=== PATIENT | male | born 1950 | race Caucasian/White ===

== ENCOUNTER 2019-08-15 14:00 | Emergency (ER) | payer OTHER ==
--- NOTE | 2019-08-15 14:33 | PDOC ---
History of Present Illness <Ej Osborne - Last Filed: 08/15/19 17:56> - General History Source: Patient Exam Limitations: No Limitations - History of Present Illness Initial Comments: 69 year old male with no PMH presented to ED for left ankle pain s/p fall from ladder today. Pt reported he was on a 16 foot ladder at the top, lost his footing and fell down around 8 steps, constantly maintaining contact with the ladder, then the ladder suddenly fell forward, causing him to fall forward to the ground with the ladder. Pt reported he believes he hit is foot on the way down, and that is why it hurts. Pt was not ambulatory after the incident, but denied LOC/vomiting, head injury, hand injury. Pt denied prodromal symptoms. Pt denied current back pain, neck pain, chest pain, headache, abdominal pain, upper extremity pain, hip pain. ROS General: denied fever, chills, generalized weakness. HEENT: denied sore throat, rhinorrhea, ear pain. Cardiovascular: denied chest pain, palpitations, syncope, diaphoresis. Respiratory: denied shortness of breath, cough, sputum production, hemoptysis. Gastrointestinal: denied abdominal pain, nausea, vomiting, diarrhea, constipation, blood in stool. Genitourinary: denied dysuria, increased urinary frequency, hematuria, urinary incontinence, flank pain. Back: denied back pain. Musculoskeletal: admitted to ankle pain, ankle swelling. Neurological: denied headache, dizziness, numbness, tingling, weakness. Integumentary: denied rash, laceration, abrasion. Hematologic/Lymphatic: denied bruising or bleeding. PE Constitutional: Well-nourished, Well-developed, appearing stated age. Airway: intact Breathing: bilateral breath sounds Circulation: 2+ carotid pulse B/L HEENT: head is normocephalic, atraumatic. No facial bones tenderness to palpation. No rodriguez sign. No raccoon eyes. EOMI. PERRLA. Neck: supple. Full ROM. no midline c-spine tenderness to palpation. No step offs. Cardiovascular: regular heart rhythm. no murmurs. no pericardial friction rub. Chest wall: No tenderness to palpation of anterior chest wall. No deformity to anterior chest wall. Respiratory: clear to auscultation bilaterally. no crackles, rhonchi or wheezing. no stridor. Gastrointestinal: soft, nontender. normal bowel sounds. no rebound, guarding, masses. No ecchymoses. Back: no midline T-spine or L-spine tenderness to palpation. No step offs. Pelvis: lower extremities equal in length without external rotation. No hip tenderness to palpation. Left lower extremity: swollen left ankle. tenderness to palpation of left lateral malleolus. no tenderness to palpation of medial malleolus, base of 5th MT, navicular area. no tenderness to palpation of left knee, left tib/fib area. 2+ DSP. Extremities: peripheral pulses intact. Neurological: CN 2-12 grossly intact. moves all four extremities. Psych: awake, alert, oriented x3. follows commands. answers questions appropriately. <Ana María Coyne - Last Filed: 08/16/19 06:44> - General Chief Complaint: Injury Stated Complaint: ANKLE INJURY Time Seen by Provider: 08/15/19 14:33 Past History <Ej Osborne - Last Filed: 08/15/19 17:56> <Ana María Coyne - Last Filed: 08/16/19 06:44> - Past Medical History Allergies/Adverse Reactions: Allergies Allergy/AdvReac Type Severity Reaction Status Date / Time diphenhydramine Allergy Severe Swelling Verified 08/15/19 14:33 [From [facility]ul] Home Medications: Ambulatory Orders Oxycodone HCl 5 mg PO QID PRN #10 tablet MDD 4 08/15/19 *Physical Exam - Vital Signs Last Vital Signs Temp Pulse Resp BP Pulse Ox 98.0 F 68 18 148/68 98 08/15/19 14:32 08/15/19 14:32 08/15/19 14:32 08/15/19 14:32 08/15/19 14:32 <Ej Osborne - Last Filed: 08/15/19 17:56> ED Treatment Course - Medications Given in the ED: ED Medications Discontinued Medications Generic Name Dose Route Start Last Admin Trade Name Freq PRN Reason Stop Dose Admin Acetaminophen 650 mg 08/15/19 14:48 08/15/19 15:20 Tylenol - PO 08/15/19 14:49 650 mg ONCE ONE Administration <Ej Osborne - Last Filed: 08/15/19 17:56> Medical Decision Making - Medical Decision Making 69 year old male presented to ED for left ankle pain/swelling s/p fall from 8 feet. Initial Vital Signs Temp Pulse Resp BP Pulse Ox 98.0 F 68 18 148/68 98 08/15/19 14:32 08/15/19 14:32 08/15/19 14:32 08/15/19 14:32 08/15/19 14:32 Afebrile. No tachycardia. No tachypnea. Mild hypertension. No hypoxia on room air. Labs ordered: none Imaging ordered: pelvis XR, left ankle/foot XR, left tib/fib XR Medications ordered: tylenol 650 mg PO once 08/15/19 15:57 XR concerning for calcaneal fracture. Dr. Hong/Jennifer group paged. 08/15/19 16:[address] Hong, who requested CT ankle/foot. Above ordered. 08/15/19 18:07 CT report: Name: [facility] DEPARTMENT OF RADIOLOGY Phys: Ana María Coyne RESIDENT : 1950 Age: 69 Sex: M [facility] Acct: [id number] Loc: [address] Exam Date: 08/15/19 Status: [place] [id number] Unit Number: [id number] EXAM #: TYPE/EXAM: RESULT: [id number] CT/LOWER EXTREMITY CT W/O CONTR Lower extremity/ left calcaneal CT without contrast Clinical information: calcaneal fracture Multiplanar imaging was performed. An acute comminuted displaced fracture is identified involving calcaneal body also extending ventrally to the talocuboid joint. There is equivocal subtle nondisplaced acute fracture within the distal fibular epiphyseal/ metaphysis ventrally. impression: As noted above. Reported By: Vicente Bill MD 08/15/[address] Rodriguez placed pt in posterior leg splint. Pt to be discharged with Ortho Ankle/Foot Trauma Surgery referral. Pt to be non-weight bearing. Pt not to take NSAIDs. Pt discharged. <Ana María Coyne - Last Filed: 08/16/19 06:44> Discharge - Discharge Information Problems reviewed: Yes - Admission No <Ej Osborne - Last Filed: 08/15/19 17:56> - Discharge Information Problems reviewed: Yes - Admission No <Ana María Coyne - Last Filed: 08/16/19 06:44> - Discharge Information Clinical Impression/Diagnosis: Calcaneal fracture Qualifiers: Encounter type: initial encounter Calcaneus location: body Fracture type: closed Fracture alignment: displaced Laterality: left Qualified Code(s): S92.012A - Displaced fracture of body of left calcaneus, initial encounter for closed fracture Condition: Good Disposition: HOME - Additional Discharge Information Prescriptions: Oxycodone HCl 5 mg PO QID PRN #10 tablet MDD 4 PRN Reason: Pain - Follow up/Referral Referrals: Wilber Smalls MD [Non Staff, Medical] - Hadley Rodriguez DO [Staff Physician] - - Patient Discharge Instructions Patient Printed Discharge Instructions: DI for Calcaneus Fracture Additional Instructions: Return to the emergency department immediately with ANY new, persistent or worsening symptoms. Take tylenol 975mg as needed for your pain up to 4 times a day. If that does not help your pain, you can take the oxycodone. Do not drive when taking oxycodone. Use the crutches to get around. Do not bear weight on your left foot. You MUST call and follow up with a trauma orthopedist within 3-4 days for further evaluation of your symptoms. Results were discussed with you. Please make sure your doctor reviews the results of your emergency evaluation. Your Emergency Department visit is not complete without a follow up with your doctor. Print Language: FRENCH
[2019-08-15 14:43] VITALS: BP 148/68; PULSE 68; TEMP 98; BMI 33.2
--- NOTE | 2019-08-15 14:46 | PDOC ---
Attending Attestation - Resident Resident Name: Ana María Coyne - ED Attending Attestation I have performed the following: I have examined & evaluated the patient, The case was reviewed & discussed with the resident, I agree w/resident's findings & plan, Exceptions are as noted - HPI HPI: 08/15/19 14:46 69y M no known pmhx presents with complaint of L ankle pain. The patient was Near the top of the 16 foot ladder that lost its footing and began to slide backward on the floor with one side against the wall, If fell slowly and then hung up on the woodwork above the doorway (approx 9 ft), And then fell the rest of the way, the patient put his left foot down With his hands and right foot still on the latter. The patient complains of pain to his left ankle denies any other injuries, headache, neck pain, dizziness, vision changes, head trauma , Back pain, upper extremity pain, right lower extremity pain. Patient denies any numbness or tingling The patient Declines any pain medication including Tylenol and aspirin Physicla GENERAL: The patient is awake, alert, and fully oriented, Nontoxic - in no acute distress. HEAD: Normocephalic, atraumatic. ABDOMEN: Soft, nontender, No guarding, no rebound. No CVA tenderness EXTREMITIES: Normal range of motion On upper extremity joints as well as lower extremity joints except for the left ankle, NEUROLOGICAL: No facial assymetry, Normal speech, back: No midline tenderness to the cervical, thoracic or lumbar spine Musculoskelatal: FROM of b/l shoulders, elbows, wrist. FROM of hips, knees, left ankles - No signs of ecchymosis, erythema, or crepitus noted on palpation extremities, chest wall, clavicals, ribs, back/lower extremity except for the L ankle Tenderness to palpation on the lateral malleolus as well as Near the deltoid ligaments. Suspect strain versus fracture will obtain an x-ray the patient declines any pain medicine - Physicial Exam PE: 08/15/19 16:02 see above - Medical Decision Making 08/15/19 16:02 The patient's x-ray is suggestive of a calcaneal fracture Anticipate placing into a splint and follow-up with Ortho Will discuss with Ortho for the recommendations 08/15/19 17:56 ortho bedside - splinted recommend trauma/ortho outpt consult for evaluation and possible surgical repair
[2019-08-15] MEDS ORDERED: ACETAMINOPHEN 325 MG TABLET (FP) PO ONE (14:48)
[2019-08-15] MEDS ORDERED: ACETAMINOPHEN 325 MG TABLET (FP) ONE (15:25)
--- NOTE | 2019-08-15 18:02 | CONSULT ---
Consult - text type - Consultation Consultation Note: ORTHOPEDIC SURGERY CONSULTATION NOTE Department of Orthopedic Surgery HISTORY OF PRESENT ILLNESS Mr. Méndez is a 69 year old male who presents to [facility] with a left calcaneus fracture. The orthopedic service was consulted for a left calcaneus fracture. The injury occurred after a fall from a ladder while painting today. The patient notes moderate pain in his ankle and heel which worsens with movement, and lessens with rest. Denies any other injuries. Denies numbness, tingling or other constitutional complaints. The patient works as a hand painter. Denies tobacco use, drug use, alcohol abuse. The patient lives with family and uses no assistive devices at baseline. FAMILY HISTORY non-contributory REVIEW OF SYMPTOMS A twelve-point review of systems was performed and was negative except as noted in HPI. PHYSICAL EXAM Constitutional: Alert and oriented to person, place, and time. Appears well- developed and well-nourished. No acute distress, appropriate mood and affect. Right Upper Extremity: Skin warm, dry, and intact; no lesions, rashes or ulcers noted. Muscle mass equal and symmetric to contralateral side. No atrophy noted. No masses or effusions noted. No tenderness to palpation all joints; nontender throughout rest of extremity. Full passive and active ROM, free from pain. Joints stable with no pathologic laxity. M/R/U/MSK/AX motor intact; SILT distally; 2+ radial pulses; Cap refill brisk. Tone and reflexes normal. Left Upper Extremity: Skin warm, dry, and intact; no lesions, rashes or ulcers noted. Muscle mass equal and symmetric to contralateral side. No atrophy noted. No masses or effusions noted. No tenderness to palpation all joints; nontender throughout rest of extremity. Full passive and active ROM, free from pain. Joints stable with no pathologic laxity. M/R/U/MSK/AX motor intact; SILT distally; 2+ radial pulses; Cap refill brisk. Tone and reflexes normal. Right Lower Extremity: Skin warm, dry, and intact; no lesions, rashes or ulcers noted. Muscle mass equal and symmetric to contralateral side. No atrophy noted. No masses or effusions noted. No tenderness to palpation all joints; nontender throughout rest of extremity. No cords or calf tenderness No significant calf/ankle edema. Full passive and active ROM, free from pain. Joints stable with no pathologic laxity. EHL/TA/GS motor intact; SILT distally; 2+ DP pulses; Cap refill brisk. Tone and reflexes normal. Left Lower Extremity: Skin warm, dry, and intact; no lesions, rashes or ulcers noted. Muscle mass equal and symmetric to contralateral side. No atrophy noted. No masses or effusions noted. There is mild swelling at the patient's heel, and posterolaterally. Tenderness to palpation over the lateral portion of his calcaneus.; nontender throughout rest of extremity. No cords or calf tenderness. No significant calf tenderness or edema. Full passive and active ROM of the left hip and knee free from pain. Joints stable with no pathologic laxity. EHL 5/5, TA/GS motor 4+/5 secondary to mild heel pain; SILT distally; 2 + DP pulses; Cap refill brisk. Tone and reflexes normal. Social History Smoking history Never smoked Hx Alcohol Use Yes: OCCASIONAL Allergies Allergy/AdvReac Type Severity Reaction Status Date / Time diphenhydramine Allergy Severe Swelling Verified 08/15/19 14:33 [From Benadryl] Vital Signs (last) Temp Pulse Resp BP Pulse Ox 98.0 F 68 18 148/68 98 08/15/19 14:32 08/15/19 14:32 08/15/19 14:32 08/15/19 14:32 08/15/19 14:32 Intake and Output 08/13/19 08/14/19 08/15/19 23:59 23:59 23:59 Other: Weight 225 lb Height 5 ft 9 in Body Mass Index (BMI) 33.2 Weight Measurement Method Est/Stated by Patient IMAGING I personally reviewed all radiographs, CT, and other imaging. They demonstrate a left calcaneus fracture with comminution. ASSESSMENT AND PLAN Mr. Mnédez is a 69 year old male presenting status post mechanical fall with a left sided calcaneus fracture. We have reviewed the imaging and clinical findings in detail, as well as their potential implications. After appropriate informed discussion, the patient was placed in a well-padded posterior splint. Patient was instructed regarding: non weight bearing on fractured side. signs and symptoms of compartment syndrome and need to seek immediate care should new onset numbness, tingling, or significantly increasing pain occur. maintain strict elevation above the level of the heart for the next 3-4 days. keeping the splint clean and dry. avoiding NSAID medications. All questions were answered. Thank you for involving our team in the care of this patient.
== END 2019-08-15 18:25 | disposition home or self-care (01) ==
LOC: FER 14:00
PROC: 2W3RX1Z Immobilization of Left Lower Leg using Splint (ICD-10-PCS; principal; 2019-08-15)
DX: S92.012A Displaced fracture of body of left calcaneus, initial encounter for closed fracture (principal); W11.XXXA Fall on and from ladder, initial encounter; Y93.89 Activity, other specified; Y92.89 Other specified places as the place of occurrence of the external cause; Z88.8 Allergy status to other drugs, medicaments and biological substances
CPT/HCPCS: 72170-TC-FY; 73590-TC-LT-FY; 73610-TC-LT-FY; 73630-TC-LT; 73700-TC-RT; 99283-25